=== PATIENT | male | born 1960 | race African-American/Black ===

== ENCOUNTER → 2024-05-10 12:35 | Outpatient (CLI) | payer OTHER, SELFPAY ==
--- NOTE | 2024-05-10 | DI.MRI.S_ITS ---
PROCEDURE: MR LUMBAR SPINE WO CON INDICATIONS: LUMBAGO W/SCIATICA TECHNIQUE: Noncontrast sagittal T1 spin echo and T2 fast echo, sagittal STIR, and axial T2 fast spin echo through the lumbar spine. COMPARISON: [facility], CR, XR LUMBAR SPINE WITH OBLIQUES PLUS FLEXION EXTENSION, 04/30/2024, 11:12. FINDINGS: Image quality: Excellent. Alignment and Curvature: 3 mm grade 1 anterolisthesis of L5 on S1. Bone Marrow: Marrow is of normal overall signal. No acute vertebral body compression fractures. Spinal Cord: Conus medullaris terminates at the L1-2 disc space level. Visualized cord demonstrates normal signal and size. Paraspinous Soft Tissues: No paravertebral masses. T12-L1: No significant spinal canal stenosis or neural foraminal narrowing. L1-L2: No significant spinal canal stenosis or neural foraminal narrowing. L2-L3: No significant spinal canal stenosis or neural foraminal narrowing. L3-L4: Mild circumferential disc bulging and mild bilateral facet hypertrophy, which do not result in significant spinal canal narrowing. There is mild bilateral neural foraminal narrowing. L4-L5: Disc desiccation and circumferential disc bulging as well as moderate bilateral facet hypertrophy and buckling of the ligamentum flavum. Findings result in pgtb-fi-uxwyxhyt narrowing of the spinal canal with mild crowding of the lateral recesses as well as moderate left and myzg-fu-leweluhp right neural foraminal narrowing. L5-S1: Disc desiccation and loss of disc space height with disc bulging and croq-tr-dhogzwag bilateral facet hypertrophy. Findings result in moderate to severe left and moderate right neural foraminal narrowing. No significant spinal canal stenosis. IMPRESSION: 1. At L5-S1, degenerative changes result in moderate to severe left and moderate right neural foraminal narrowing without significant spinal canal stenosis. 2. At L4-5, degenerative changes result in moderate left and drqs-if-qvqgfmzv right neural foraminal narrowing, mild to moderate narrowing of the spinal canal, and crowding of the lateral recesses. 3. No high-grade spinal canal stenosis. Approved by: Fran Hare M.D. on 05/11/2024 at 9:36
== END ==
PROVIDERS: Referring Provider Physical Medicine & Rehabilitation Pain Medicine; Visit Provider Physical Medicine & Rehabilitation Pain Medicine
DX: M54.41 Lumbago with sciatica, right side (principal); M47.816 Spondylosis without myelopathy or radiculopathy, lumbar region; M47.817 Spondylosis without myelopathy or radiculopathy, lumbosacral region; M48.07 Spinal stenosis, lumbosacral region; M48.061 Spinal stenosis, lumbar region without neurogenic claudication
CPT/HCPCS: 72148